=== PATIENT | male | born 1975 | race Caucasian/White ===

== ENCOUNTER 2016-08-09 23:06 | Emergency (ER) | payer BC ==
[~2016-08-09 23:06] MED LIST: CHOLESTEROL MED PO; CONCERTA56 PO; DIL4TAB PO; METHOC750B PO; PRIN20 PO; PROZAC PO
[2017-01-12] MEDS ORDERED: LIPITOR20 PO (14:32)
[2017-01-12] MEDS ORDERED: WELL100 PO (14:32)
[2017-01-12] MEDS ORDERED: ARIMIDEX1 PO (14:32)
[2017-01-12] MEDS ORDERED: TRICOR145 PO (14:33)
[2017-01-12] MEDS ORDERED: ELIQUIS 5 MG TAB5 MG PO (14:33)
[2017-01-12] MEDS ORDERED: ASAB PO (14:34)
[2017-01-12] MEDS ORDERED: PRILOSEC40 MG PO (14:34)
[2017-01-14] MEDS ORDERED: NITROQUICK0.4 MG SL (10:26)
[2017-01-14] MEDS ORDERED: PROZAC PO (10:26)
[2017-01-14] MEDS ORDERED: ELIQUIS 5 MG TAB5 MG PO (10:27)
[2017-01-14] MEDS ORDERED: PRILOSEC40 MG PO (10:27)
[2017-01-14] MEDS ORDERED: WELLSR150 PO (10:28)
[2017-01-14] MEDS ORDERED: TRAZ50 PO (10:29)
[2017-01-14] MEDS ORDERED: ARIMIDEX1 PO (10:29)
[2017-01-14] MEDS ORDERED: TRICOR145 PO (10:29)
[2017-01-14] MEDS ORDERED: ASAB PO (10:30)
[2017-01-14] MEDS ORDERED: ZESTRIL20 MG PO (10:30)
[2017-01-14] MEDS ORDERED: [UNRECOGNIZED DRUG - OTHER] PO (10:31)
== END 2016-08-10 00:54 | disposition home or self-care (01) ==
LOC: ER 23:06
DX: M25.571 Pain in right ankle and joints of right foot (principal); I10 Essential (primary) hypertension; F32.9 Major depressive disorder, single episode, unspecified; Z88.5 Allergy status to narcotic agent; Z79.899 Other long term (current) drug therapy; W50.0XXA Accidental hit or strike by another person, initial encounter
CPT/HCPCS: 73630-RT; 99284

== ENCOUNTER 2016-09-16 21:00 | Emergency (ER) | payer BC ==
[2017-01-12] MEDS ORDERED: WELL100 PO (14:32)
[2017-01-12] MEDS ORDERED: ARIMIDEX1 PO (14:32)
[2017-01-12] MEDS ORDERED: LIPITOR20 PO (14:32)
[2017-01-12] MEDS ORDERED: ELIQUIS 5 MG TAB5 MG PO (14:33)
[2017-01-12] MEDS ORDERED: TRICOR145 PO (14:33)
[2017-01-12] MEDS ORDERED: ASAB PO (14:34)
[2017-01-12] MEDS ORDERED: PRILOSEC40 MG PO (14:34)
[2017-01-14] MEDS ORDERED: PROZAC PO (10:26)
[2017-01-14] MEDS ORDERED: NITROQUICK0.4 MG SL (10:26)
[2017-01-14] MEDS ORDERED: ELIQUIS 5 MG TAB5 MG PO (10:27)
[2017-01-14] MEDS ORDERED: PRILOSEC40 MG PO (10:27)
[2017-01-14] MEDS ORDERED: WELLSR150 PO (10:28)
[2017-01-14] MEDS ORDERED: TRICOR145 PO (10:29)
[2017-01-14] MEDS ORDERED: ARIMIDEX1 PO (10:29)
[2017-01-14] MEDS ORDERED: TRAZ50 PO (10:29)
[2017-01-14] MEDS ORDERED: ASAB PO (10:30)
[2017-01-14] MEDS ORDERED: ZESTRIL20 MG PO (10:30)
[2017-01-14] MEDS ORDERED: [UNRECOGNIZED DRUG - OTHER] PO (10:31)
== END 2016-09-16 21:51 | disposition home or self-care (01) ==
LOC: ER 21:00
DX: M79.605 Pain in left leg (principal); Z88.5 Allergy status to narcotic agent; Z79.899 Other long term (current) drug therapy
CPT/HCPCS: 99283